=== PATIENT | male | born 1990 | race Caucasian/White ===

== ENCOUNTER 2023-09-29 10:34 | Emergency (ER) | payer OTHER, SELFPAY ==
[2023-09-29 10:56] VITALS: BP 117/50
[2023-09-29 11:12] LABS: % Basophils 0.2 % (0-2); % Eosinophils 0.5 % (0-6); % Immature Granulocytes 0.2 % (0-0.5); % Lymphocytes 13.7 % (20.5-51.1); % Monocytes 10.2 % (1.7-9.3); % Neutrophils 75.2 % (42.2-75.2); Absolute Lymphocytes 0.6 10^3/uL (1.2-3.4); Absolute Monocytes 0.4 10^3/uL (0.1-0.6); Absolute Neutrophils 3.2 10^3/uL (1.4-6.5); Hematocrit 44.8 % (39.0-52.0); Hemoglobin 14.9 g/dL (13.0-18.0); Mean Corp Hgb Conc. 33.3 g/dL (33.0-37.0); Mean Corpuscular Hgb 27.9 pg (27.0-31.0); Mean Corpuscular Volume 83.9 fL (80.0-94.0); Mean Platelet Volume 10.4 fL (7.4-10.4); Nucleated Red Blood Cells % 0 % (-); Platelet Count 200 10^3/uL (130-400); Red Blood Cell Count 5.34 10^6/uL (4.70-6.10); Red Cell Dist. Width 13.8 % (11.5-14.5); White Blood Cell Count 4.3 10^3/uL (4.8-10.8)
[2023-09-29 11:55] LABS: ALT (SGPT) 34 U/L (0-50); AST (SGOT) 35 U/L (17-59); Albumin 4.3 g/dl (3.5-5.0); Alkaline Phosphatase 53 U/L (38-126); Blood Urea Nitrogen 23 mg/dl (9-20); Calcium 9.1 mg/dl (8.4-10.2); Carbon Dioxide 25 mmol/L (22-30); Chloride 105 mmol/L (98-107); Glucose 93 mg/dl (70-99); Lipase 63 U/L (23-300); Potassium 3.7 mmol/L (3.5-5.1); Sodium 137 mmol/L (135-145); Total Bilirubin 0.8 mg/dl (0.2-1.3); Total Protein 7.1 g/dl (6.3-8.2); eGFR > 60.00
[2023-09-29] MEDS: NSS 1000 IV (12:44)
[2023-09-29] MEDS: ZOFRAN 4 MG IV (12:45)
[2023-09-29] MEDS: OMNIPAQUE 50 ML PO (12:52)
[2023-09-29 13:09] LABS: D-Dimer 1.04 ug/mlFEU (0.00-0.50)
--- NOTE | 2023-09-29 13:40 | ED.GENMED ---
History of Present Illness
<RYAN Castro - Last Filed: 09/29/23 16:48>
General
Chief Complaint: Abdominal Symptoms
Source: patient
Exam Limitations: none
Time Seen by Provider: 09/29/23 11:55
Nursing documentation reviewed up to this point in time: agreed with
Travel History
Have you had any contact with someone who has COVID-19?: No
Do you have any symptoms of coronavirus? Fever > 100 degrees, chills, cough, shortness of breath, sore throat, loss of taste or smell, muscle aches, or headache?: No
History of Present Illness
History of Present Illness:
33 yr old male with past medical history of diverticulitis with perforation, colostomy with reversal complicated by abscess. Patient presents to the ER for evaluation. On Friday he started with chills body aches and had nausea and vomiting.
Patient has had diarrhea since yesterday and has had some left-sided back pain. He denies any fevers. He does feel the pain is worse with moving in his back but also felt a little short of breath . All of his symptoms brought him to the ER. He
denies any shortness of breath or chest pain now.
Review of Systems
<RYAN Castro - Last Filed: 09/29/23 16:48>
Review of Systems
Allergies reviewed?: Yes
All Other Systems: ROS reviewed and negative except as documented in HPI and ROS
Constitutional: Denies fever
Respiratory: Reports other ( pt had an episode of SOB today )
Cardiac: Reports chest pain
ABD/GI: Reports abdominal pain, nausea, vomiting and diarrhea
: Reports no symptoms
Musculoskeletal: Reports back pain
Skin: Reports no symptoms
Neurological: Reports no symptoms
Psychiatric: Reports no symptoms
Phy Exam
<RYAN Castro - Last Filed: 09/29/23 16:48>
General Physical Exam
General Presentation: no apparent distress
General age: appears stated age
General Skin: warm and dry
General Habitus: normal
General Mental: alert
General Hydration: appears well hydrated
Cardiovascular Exam
Cardiovascular Exam: regular rate/rhythm, no murmur and normal peripheral pulses
Pulmonary Exam
Pulmonary Exam: lungs clear and no respiratory distress
Gastrointestinal Exam
Gastrointestinal Exam: normal bowel sounds, non tender and soft
Neurological Exam
Neurological Exam: alert and oriented x3
Musculoskeletal Exam
Musculoskeletal Exam: full ROM
Skin Exam
Skin Exam: normal color and warm/dry
Psychiatric Exam
Psychiatric Exam: normal mood/affect
Course
<RYAN Castro - Last Filed: 09/29/23 16:48>
Orders/Labs/Results
Orders:
Orders
09/29/23 11:05
Complete Blood Count/With Diff Urgent
Comprehensive Metabolic Panel Urgent
Lipase Urgent
09/29/23 12:13
0.9% Sodium Chloride 1000 ml [Nss] 1,000 ml IV BOLUS
09/29/23 12:14
Ondansetron Injectable [Zofran] 4 mg .ROUTE .STK-MED ONE
09/29/23 12:15
Ondansetron Injectable [Zofran] 4 mg IV NOW STA
09/29/23 12:32
Iohexol [Omnipaque] See Protocol PO NOW STA
09/29/23 12:43
DDimer [D-Dimer] Urgent
09/29/23 13:43
CT Abd/pel W Iv And Oral Contr Urgent
Comment:
Reason For Exam: abd pain vomiting
Iohexol [Omnipaque] See Protocol PO NOW STA
09/29/23 13:54
Ketorolac [Toradol] 15 mg IV NOW STA
Pantoprazole [Protonix IV] 40 mg IV NOW STA
09/29/23 13:58
0.9% Sodium Chloride 500 ml [Nss] 500 ml IV BOLUS
09/29/23 15:05
CT Chest Pe Study Urgent
Comment:
Reason For Exam: sob
Abnormal Lab Results
09/29/23 09/29/23
11:05 12:43
WBC 4.3 L 10^3/uL
(4.8-10.8)
Absolute Lymphs (auto) 0.6 L 10^3/uL
(1.2-3.4)
Lymphocytes % 13.7 L %
(20.5-51.1)
Monocytes % 10.2 H %
(1.7-9.3)
D-Dimer 1.04 H ug/mlFEU
(0.00-0.50)
BUN 23 H mg/dl
(9-20)
09/29/23 11:05
09/29/23 11:05
Vital Signs
Initial and Last Documented VS:
Initial Vital Signs
Temp Pulse Resp BP Pulse Ox
98.0 F 110 16 117/50 98
09/29/23 10:56 09/29/23 10:56 09/29/23 10:56 09/29/23 10:56 09/29/23 10:56
Last Documented Vital Signs
Temp Pulse Resp BP Pulse Ox
98.0 F 110 16 117/50 98
09/29/23 10:56 09/29/23 10:56 09/29/23 10:56 09/29/23 10:56 09/29/23 10:56
Cigar Sorter consulted with Physician
Cigar Sorter consulted with physician?: Yes
Name of Physician Consulted: Terry
<Gary Stewart MD - Last Filed: 09/29/23 14:03>
Orders/Labs/Results
Orders:
Orders
09/29/23 11:05
Complete Blood Count/With Diff Urgent
Comprehensive Metabolic Panel Urgent
Lipase Urgent
09/29/23 12:13
0.9% Sodium Chloride 1000 ml [Nss] 1,000 ml IV BOLUS
09/29/23 12:14
Ondansetron Injectable [Zofran] 4 mg .ROUTE .STK-MED ONE
09/29/23 12:15
Ondansetron Injectable [Zofran] 4 mg IV NOW STA
09/29/23 12:32
Iohexol [Omnipaque] See Protocol PO NOW STA
09/29/23 12:43
DDimer [D-Dimer] Urgent
09/29/23 13:43
CT Abd/pel W Iv And Oral Contr Urgent
Comment:
Reason For Exam: abd pain vomiting
Iohexol [Omnipaque] See Protocol PO NOW STA
09/29/23 13:54
Ketorolac [Toradol] 15 mg IV NOW STA
Pantoprazole [Protonix IV] 40 mg IV NOW STA
09/29/23 13:58
0.9% Sodium Chloride 500 ml [Nss] 500 ml IV BOLUS
09/29/23 15:05
CT Chest Pe Study Urgent
Comment:
Reason For Exam: sob
Abnormal Lab Results
09/29/23 09/29/23
11:05 12:43
WBC 4.3 L 10^3/uL
(4.8-10.8)
Absolute Lymphs (auto) 0.6 L 10^3/uL
(1.2-3.4)
Lymphocytes % 13.7 L %
(20.5-51.1)
Monocytes % 10.2 H %
(1.7-9.3)
D-Dimer 1.04 H ug/mlFEU
(0.00-0.50)
BUN 23 H mg/dl
(9-20)
09/29/23 11:05
09/29/23 11:05
Vital Signs
Initial and Last Documented VS:
Initial Vital Signs
Temp Pulse Resp BP Pulse Ox
98.0 F 110 16 117/50 98
09/29/23 10:56 09/29/23 10:56 09/29/23 10:56 09/29/23 10:56 09/29/23 10:56
Last Documented Vital Signs
Temp Pulse Resp BP Pulse Ox
98.0 F 110 16 117/50 98
09/29/23 10:56 09/29/23 10:56 09/29/23 10:56 09/29/23 10:56 09/29/23 10:56
<RYAN Castro - Last Filed: 09/29/23 16:48>
MDM/Problems Addressed
Differential Diagnosis Includes:
Not limited to viral syndrome, dehydration, muscle pain less likely PE
MDM/Problems Addressed:
Patient is a 33-year-old male with history as documented above diverticulitis with perforation requiring colostomy that has since been reversed. Patient presented with nausea vomiting diarrhea since last night but also developed back pain and was
concerned because he had history of abscess in the past after his colostomy reversal. He was concerned with all the symptoms and came to the ER. He presented however awake alert no acute distress abdomen soft and nontender. He had no episode of
vomiting here but was given Zofran. No diarrhea here. Patient was given fluids. Regarding patient's symptoms with previous abdominal history CAT scan of abdomen was done and does show small volume of fluid scattered within the colon suggestive
of acute diarrheal illness. With back pain and patient had mentioned a little shortness of breath that he has not had any ER D-dimer was done and elevated CT done and no large central clot is identified. There is documentation however per
radiology that there is limited evaluation for PE due to suboptimal timing of the contrast bolus however patient looks well no complaints of shortness of breath your lungs are clear no DVT PE risk factors. Patient does report the back pain is worse
with movement patient's symptoms may be likely muscular from vomiting. Patient has Zofran at home. Patient feels comfortable going home with close outpatient follow family doctor. Patient eval by ED physician.
<RYAN Castro - Last Filed: 09/29/23 16:48>
*Critical Care Note
Total Time (30-74mins, 75-104mins- exclusive of procedures): Not Applicable
ED Attending Note
<RYAN Castro - Last Filed: 09/29/23 16:48>
-
Portions of this chart may have been created with voice recognition software.� Occasional wrong word or��sound alike� substitutions may have occurred due to the inherent limitations of voice recognition software.
<Gary Stewart MD - Last Filed: 09/29/23 14:03>
ED Attending Note
Patient seen and examined by attending physician: Yes
ED Attending Note:
Patient presents ED secondary to persistent nausea, vomiting, and nonbloody diarrhea over the past 3 days. Denies fever or chills. Patient reports diffuse mild abdominal cramping sensation, along with left mid back pain. Of note, patient
unfortunately has had history of perforated diverticulum, resulting in colostomy bag, which was reversed in 2020 at [facility]. Since then, patient states that he has not had any recurrent symptoms. Denies sick contact. Denies recent
change in medications or diet. Denies dizziness but reports generalized weakness. In addition, patient states that he experienced increased pain with shortness of breath when he was ambulating at home, which now has resolved.
Physical Exam
General: no apparent distress, not acutely ill. afebrile
Head: nc/at. eomi
Neck: supple. no meningeal signs.
Heart: s1/s2 regular rate and rhythm, no murmur. equal radial pulses.
Lungs: no acute respiratory distress. clear bilaterally
Abdomen: normal bowel sounds. not tender. no distention.
Back: no midline tenderness. no cva tenderness.
Neuro: alert and oriented. no focal neurological deficits
Skin: no rash
Psychiatric: well kept. interactive and cooperative
Extremities: no edema. no calf tenderness.
History exam concerning for potential likely viral illness versus recurrent diverticulitis versus food reaction. Patient otherwise is afebrile, hemodynamically stable, nontoxic-appearing. Palpitations and chest tightness, less likely secondary to
pulm embolism, but likely secondary to ongoing abdominal illness with dehydration. Patient will be hydrated aggressively and obtain CT abdomen pelvis. Patient to be reassessed afterwards.
Discharge Plan
Departure
Patient Disposition: Home (Routine Discharge)
Date of Disposition: 09/29/23
Time of Disposition: 16:46
Patient with high blood pressure during this ER visit?: No
Covid-19: Not Applicable
Discharge Problem:
Acute viral syndrome
Instructions: Diarrhea in adolescents and adults, Nausea and Vomiting, Adult (DC), Viral Syndrome (DC)
Referrals:
Michelle Woods DO [Family Provider] -
Activity Restrictions/Additional Instructions:
Follow-up With family doctor in the next several days for reevaluation.
Clear liquids for the first 24 hours followed by bland solids. You may use your Zofran at home for nausea. Return if any worsening of symptoms
Interventions
Interventions:
*Risk Screen - Suicide Last Done: 09/29/23 12:32
*General Assessment Last Done: 09/29/23 12:32
*Neglect/Abuse Screening Last Done: 09/29/23 12:32
*ED COVID-19 Vaccine History Last Done: 09/29/23 10:56
QE-Otkkkn-[id number] Assessment Last Done: 09/29/23 12:32
Discharge Date and Time
Print Language: YI
[2023-09-29] MEDS: NSS 500 IV (14:09)
[2023-09-29] MEDS: TORADOL 15 MG IV (14:10)
[2023-09-29] MEDS: PROTONIX IV 40 MG IV (14:10)
[2023-09-29 17:00] VITALS: BP 119/71
== END 2023-09-29 17:04 | disposition home or self-care (01) ==
LOC: EMR 10:34
PROVIDERS: Emergency Medicine; Nurse Practitioner; EMERGENCY PHYSICIAN Emergency Medicine; FAMILY PHYSICIAN Family Medicine
DX: B34.9 Viral infection, unspecified (principal)
CPT/HCPCS: 99285; 96374; 96375 ×2; 96361; 71275; 74177; 80053; 83690; 85025; 85379; Q9967